=== PATIENT | female | born 1985 | race Caucasian/White ===

== ENCOUNTER 2018-11-09 07:10 | Day surgery (SDC) | payer OTHER ==
[~2018-11-09 07:10] MED LIST: Buffered Lidocaine 1% SYRIN* 1 ML/SYRINGE INTRADERM ONE; Famotidine IV* 10 MG/ML 2 ML (20 mg) IV ONE; Lactated Ringers 1000 ML Bag* 1,000 ML IV SCH
[2018-11-09] MEDS ORDERED: Clindamycin 900 MG/D5W BAG(*) 900 MG/50 ML BAG IVPB ONE (07:40)
[2018-11-09] MEDS ORDERED: Famotidine IV* 10 MG/ML 2 ML (20 mg) ONE (07:40)
[2018-11-09] MEDS ORDERED: fentaNYL* 50 MCG/ML 5 ML VIAL (250 MCG VIAL) ONE (07:57)
[2018-11-09] MEDS ORDERED: Rocuronium* 10 MG/ML VIAL ONE (07:57)
[2018-11-09] MEDS ORDERED: Midazolam* 1 MG/ML 2 ML VIAL (2 MG) ONE (07:57)
[2018-11-09] MEDS ORDERED: Lidocaine 2% PF * 5 ML VIAL ONE (08:00)
[2018-11-09] MEDS ORDERED: Propofol* 10 MG/ML 20 ML BTL ONE (08:00)
[2018-11-09] MEDS ORDERED: Bupivacaine 0.5%* 50 ML VIAL ONE (09:20)
[2018-11-09] MEDS ORDERED: HYDROmorphone INJ1* 1 MG/ML SYRINGE ONE (09:58)
[2018-11-09] MEDS ORDERED: Ondansetron INJ* 2 MG/ML VIAL ONE (10:42)
[2018-11-09] MEDS ORDERED: Acetaminophen IV 1GM/100ML * 1,000 MG/100 ML VIAL IVPB ONE (11:17)
[2018-11-09] MEDS ORDERED: Naloxone* 0.4 MG/ML 1 ML VIAL IV PRN (11:17)
[2018-11-09] MEDS ORDERED: HYDROmorphone INJ1* 1 MG/ML SYRINGE IV PRN (11:17)
[2018-11-09] MEDS ORDERED: Ketorolac INJ* 30 MG/ML 1 ML VIAL ONE (11:17)
[2018-11-09] MEDS ORDERED: oxyCODONE TAB* 5 MG TAB PO PRN (11:17)
[2018-11-09] MEDS ORDERED: DiMENhydriNATE IV* 50 MG/ML VIAL IV PUSH PRN (11:17)
[2018-11-09] MEDS ORDERED: Ketorolac INJ* 30 MG/ML 1 ML VIAL IV PRN (11:17)
[2018-11-09] MEDS ORDERED: Acetaminophen IV 1GM/100ML * 100 ML ONE (11:20)
[2018-11-09] MEDS ORDERED: oxyCODONE TAB* 5 MG TAB ONE (11:47)
[2018-11-09] MEDS ORDERED: fentaNYL* 50 MCG/ML 2 ML VIAL (100 MCG VIAL) ONE (12:07)
[2018-11-09] MEDS: fentaNYL* 50 MCG/ML 2 ML VIAL (100 MCG VIAL) IV PRN ×2 (12:09→12:21)
[2018-11-09 12:57] VITALS: BP 106/72
--- NOTE | 2018-11-09 14:40 | OP ---
DATE OF OPERATION: 11/09/18 - [facility] DATE OF : 81 ATTENDING SURGEON: Dr. Joey West. MASTER PLUMBER: Caroline Allison PA-C PRE-OP DIAGNOSIS: Right tibiotalar arthritis. POST-OP DIAGNOSIS: Right tibiotalar arthritis. OPERATIVE PROCEDURE: Right tibiotalar fusion with tibial bone graft. DESCRIPTION OF PROCEDURE: The patient was taken to the operating room where a lateral incision was made over the tibiotalar joint and we did a complete exposure of the dorsal aspect of the tibiotalar joint. I used a Mcwilliams elevator to open the joint and a Lamina doorperson to open the joint further to allow the caleb to prepare the joint for arthrodesis. We removed the anterior osteophytes and also with a Mcwilliams elevator stripped the posterior capsule and the medial deltoid thus allowing correction of the equinus deformity. Through a 3-cm incision proximally at Gerdy's tubercle, we created a lateral corticotomy with the power caleb and harvested cancellous bone. This was mixed with some allograft chips and placed along the tibiotalar joint. We then replaced the defect in the proximal tibia with packed allograft chipped as well. The proximal wound was closed with interrupted 2-0 Vicryl sutures, Monocryl for the skin, and radha for the dermis. We then fixed the tibiotalar joint in neutral position using 6.7-mm cannulated screws. Good fixation and alignment was obtained. Three screws were used with good strong stability. We then irrigated the lateral wound and closed with 0 Vicryl sutures, 2-0 Vicryl, and radha for the skin and a compression dressing and plaster splint applied. [id number] #: [id number] [facility]
== END 2018-11-09 12:59 | disposition home or self-care (01) ==
LOC: OR 07:10
PROVIDERS: ATTEND Orthopaedic Surgery
DX: M19.171 Post-traumatic osteoarthritis, right ankle and foot (principal); J45.909 Unspecified asthma, uncomplicated; Z87.891 Personal history of nicotine dependence; Z79.899 Other long term (current) drug therapy
CPT/HCPCS: 76000; 81025; A9270-GY; C1713; J1170; J1885; J2250; J2405; J2704; J3010